=== PATIENT | male | born 1980 | race Caucasian/White ===

== ENCOUNTER 2017-02-25 11:12 | Emergency (ER) | payer SELFPAY ==
[2017-02-25 11:20] VITALS: BMI 28.8
[2017-02-25 11:48] VITALS: BP 184/107
--- NOTE | 2017-02-25 12:04 | DR.GENAD ---
HPI - PCP Primary Care Physician: NFD - Complaint/Symptoms Chief Complaint Doctors Comments: Patient presents with complaint of right inguinal pain. He reports that the pain is s/p surgery of inguinal hernia. He reports that he has been treated for epididymitis. Chief Complaint:: SHARP PAINS IN LOWER STOMACH. HERNIA SURGERY IN 05/2016 AT [facility]. BEEN THERE MULTIPLE TIMES KEEP TELLING ME THAT IT IS INFECTION. Self Treatment fo Chief Complaint: GAS PILLS - Source History Provided: Patient - Mode of Arrival Mode of Arrival: Ambulatory - Timing Onset of Chief Complaint: 02/20/17 PMH - PMH Past Medical History: No Past Surgical History: Yes Past Surgical History Comment: HERNIA AND TUBES IN EARS - Family History History of Family Medical Conditions: No Family Medical History Comment: DON'T KNOW BECAUSE THEY WHEN I WAS YOUNG - Social History Does patient currently use any type of tobacco product: Yes Have you used tobacco products in the last 12 months: Yes Type of Tobacco Use: Cigarettes Does any household member use tobacco: Yes Alcohol Use: Rarely Do you use any recreational Drugs:: No Lives With: Family Lives Where: Home - infectious screening In the last 2 months have you had wt loss of >10#?: NO Have you had fever, night sweats or hemotysis?: No Have you traveled outside the country in the last 6 months?: No Isolation: Standard ROS - Review of Systems Constitutional: negative: Diaphoresis Eyes: No Symptoms Reported ENTM: No Symptoms Reported Respiratoy: No Symptoms Reported Cardiovascular: No Symptoms Reported Gastrointestinal/Abdominal: No Symptoms Reported Genitourinary: No Symptoms Reported. negative: Discharge, Pain Neurological: No Symptoms Reported Musculoskeletal: No Symptoms Reported Integumentary: No Symptoms Reported Hematologic/Lymphatic: No Symptoms Reported Endocrine: No Symptoms Reported Psychiatric: No Symptoms Reported All Other Systems: Reviewed and Negative PE - Vital Signs Vitals: Temperature 97.7 F Pulse Rate [Right Brachial] 95 Pulse Rate 102 Respiratory Rate 20 Blood Pressure [Right Arm] 184/107 Blood Pressure 171/100 O2 Sat by Pulse Oximetry 100 - General Limitations: No Limitations General Appearance: Alert, In No Apparent Distress - Head Head Exam: Normal Inspection, Atraumatic - Eyes Eye exam: Normal Appearance, PERRL, EOMI - ENT ENT Exam: Normal Exam External Ear Exam: Normal External Inspection TM/Canal Exam: Bilateral Normal Nose Exam: Normal Nose Exam Mouth Exam: Normal Inspection Throat Exam: Normal Inspection - Neck Neck Exam: Normal Inspection - Chest Chest Inspection: Normal Inspection - Respiratory Respiratory Exam: Normal Lung Sounds Bilat Respiratory Exam: Bilateral Clear to Auscultation - Cardiovascular Cardiovascular Exam: Regular Rate - Abdominal Exam Abdominal Exam: Normal Inspection Abdominal Tenderness: negative: RUQ, RLQ, LUQ, LLQ, Epigastrium, Suprapubic, Diffuse, Mild, Moderate, Severe, Other - Extremities Extremities Exam: Normal Inspection, Full ROM - Back Back Exam: Normal Inspection - Neurologic Neurological Exam: Alert, Oriented X3, CN II-XII Intact - Psychiatric Psychiatric Exam: Normal Affect, Normal Mood - Skin Skin Exam: Warm, Dry, Intact - Other Exam Other Exam: Inguinal area (left) non erythemartous, testes wnl Course - Reevaluation 1st: Unchanged ROR - Labs Reviewed Laboratory Results Reviewed?: Yes (Crp 1.00) Result Diagrams: 02/25/17 12:10 02/25/17 12:10 Laboratory: WBC 8.7 X10^3/uL (3.6-10.0) 02/25/17 12:10 RBC 4.99 X10^6/uL (4.7-6.0) 02/25/17 12:10 Hgb 15.4 g/dL (13.5-18.0) 02/25/17 12:10 Hct 44.8 % (42.0-54.0) 02/25/17 12:10 MCV 89.8 fL (80.0-100.0) 02/25/17 12:10 MCH 30.9 pg (27.0-34.0) 02/25/17 12:10 MCHC 34.4 g/dL (33.0-35.0) 02/25/17 12:10 RDW 13.8 % (11.6-16.5) 02/25/17 12:10 Plt Count 294 X10^3/uL (150.0-450.0) 02/25/17 12:10 MPV 8.0 fL (7.4-11.0) 02/25/17 12:10 Neut % 60.7 % (42.0-75.0) 02/25/17 12:10 Lymph % 25.6 % (21.0-51.0) 02/25/17 12:10 [place] % 11.5 % (0.0-13.0) 02/25/17 12:10 Eos % 1.4 % (0.9-2.9) 02/25/17 12:10 Baso % 0.8 % (0.2-1.0) 02/25/17 12:10 Neut # 5.3 x10^3/uL (2.2-4.8) H 02/25/17 12:10 Lymph # 2.2 X10^3/uL (1.3-2.9) 02/25/17 12:10 [place] # 1.0 x10^3/uL (0.3-0.8) H 02/25/17 12:10 Eos # 0.1 x10^3/uL (0.0-0.2) 02/25/17 12:10 Baso # 0.1 X10^3/uL (0.0-0.1) 02/25/17 12:10 Absolute Nucleated RBC 0.0 /100WBC 02/25/17 12:10 Sodium 138 mmol/L (136-145) 02/25/17 12:10 Corrected Sodium TNP 02/25/17 12:10 Potassium 4.1 mmol/L (3.5-5.1) 02/25/17 12:10 Chloride 104 mmol/L (98-107) 02/25/17 12:10 Carbon Dioxide 29.6 mmol/L (21-32) 02/25/17 12:10 BUN 7 mg/dL (7-18) 02/25/17 12:10 Creatinine 1.04 mg/dL (0.70-1.30) 02/25/17 12:10 Est GFR (MDRD) Af Amer > 60 (>60) 02/25/17 12:10 Est GFR (MDRD) Non-Af > 60 (>60) 02/25/17 12:10 Glucose 79 mg/dL (65-99) 02/25/17 12:10 Calcium 9.0 mg/dL (8.5-10.1) 02/25/17 12:10 Corrected Calcium TNP 02/25/17 12:10 Total Bilirubin 0.50 mg/dL (0.2-1.0) 02/25/17 12:10 AST 14 Units/L (15-37) L 02/25/17 12:10 ALT 26 Units/L (12-78) 02/25/17 12:10 Alkaline Phosphatase 62 Units/L (46-116) 02/25/17 12:10 C-Reactive Protein 1.00 mg/L (0-3.0) 02/25/17 12:10 Total Protein 7.0 g/dL (6.4-8.2) 02/25/17 12:10 Albumin 3.8 g/dL (3.4-5.0) 02/25/17 12:10 Globulin 3.2 g/dL (2.5-4.5) 02/25/17 12:10 Albumin/Globulin Ratio 1.2 Ratio (1.1-2.1) 02/25/17 12:10 Specimen Type Clean catch urine 02/25/17 13:15 Urine Color Yellow (YELLOW) 02/25/17 13:15 Urine Appearance Hazy (CLEAR) 02/25/17 13:15 Urine pH 6.0 (5.0 - 8.0) 02/25/17 13:15 Ur Specific [place] 1.025 (1.000-1.030) 02/25/17 13:15 Urine Protein 1+ (NEGATIVE) 02/25/17 13:15 Urine Glucose (UA) Negative (NEGATIVE) 02/25/17 13:15 Urine Ketones Negative (NEGATIVE) 02/25/17 13:15 Urine Occult Blood Negative (NEGATIVE) 02/25/17 13:15 Urine Nitrite Positive (NEGATIVE) 02/25/17 13:15 Urine Bilirubin Negative (NEGATIVE) 02/25/17 13:15 Urine Urobilinogen 1+ (NORMAL) 02/25/17 13:15 Ur Leukocyte Esterase Negative (NEGATIVE) 02/25/17 13:15 Urine RBC 0-3 /HPF (NEGATIVE) 02/25/17 13:15 Urine WBC 5-10 /HPF (NEGATIVE) 02/25/17 13:15 Ur Squamous Epith Cells Rare /HPF (NEGATIVE) 02/25/17 13:15 Amorphous Sediment 2+ /HPF (NEGATIVE) 02/25/17 13:15 Urine Bacteria Trace /HPF (NEGATIVE) 02/25/17 13:15 Ur Culture Indicated? Yes/culture set up 02/25/17 13:15 - Diagnosis Discharge Problem: Lt inguinal pain - Discharge Plan Condition: Stable - Follow ups/Referrals Follow ups/Referrals: NFD,None [Primary Care Provider] - 3 days - Instructions
[2017-02-25 12:33] LABS: BASOPHILS # (AUTO) 0.1 X10^3/uL (0.0-0.1); BASOPHILS % (AUTO) 0.8 % (0.2-1.0); EOSINOPHILS # (AUTO) 0.1 x10^3/uL (0.0-0.2); EOSINOPHILS % (AUTO) 1.4 % (0.9-2.9); HEMATOCRIT 44.8 % (42.0-54.0); HEMOGLOBIN 15.4 g/dL (13.5-18.0); LYMPHOCYTES # (AUTO) 2.2 X10^3/uL (1.3-2.9); LYMPHOCYTES % (AUTO) 25.6 % (21.0-51.0); MEAN CORPUSCULAR HEMOGLOBIN 30.9 pg (27.0-34.0); MEAN CORPUSCULAR HGB CONC 34.4 g/dL (33.0-35.0); MEAN CORPUSCULAR VOLUME 89.8 fL (80.0-100.0); MONOCYTES % (AUTO) 11.5 % (0.0-13.0); NEUTROPHILS # (AUTO) 5.3 x10^3/uL (2.2-4.8); NEUTROPHILS % (AUTO) 60.7 % (42.0-75.0); PLATELET COUNT 294 X10^3/uL (150.0-450.0); RED BLOOD COUNT 4.99 X10^6/uL (4.7-6.0); RED CELL DISTRIBUTION WIDTH 13.8 % (11.6-16.5); WHITE BLOOD COUNT 8.7 X10^3/uL (3.6-10.0)
[2017-02-25 12:42] LABS: ALANINE AMINOTRANSFERASE 26 Units/L (12-78); ALBUMIN 3.8 g/dL (3.4-5.0); ALKALINE PHOSPHATASE 62 Units/L (46-116); ASPARTATE AMINO TRANSFERASE 14 Units/L (15-37); BLOOD UREA NITROGEN 7 mg/dL (7-18); CARBON DIOXIDE 29.6 mmol/L (21-32); CHLORIDE 104 mmol/L (98-107); CREATININE 1.04 mg/dL (0.70-1.30); GLUCOSE 79 mg/dL (65-99); SODIUM 138 mmol/L (136-145); eGFR BLACK RACES > 60 (>60); eGFR NON BLACK RACES > 60 (>60)
[2017-02-25 13:23] LABS: BILIRUBIN,URINE NEGATIVE (NEGATIVE); BLOOD/HEMOGLOBIN,URINE NEGATIVE (NEGATIVE); GLUCOSE, URINE NEGATIVE (NEGATIVE); KETONES,URINE NEGATIVE (NEGATIVE); LEUKOCYTE ESTERASE ,URINE NEGATIVE (NEGATIVE); NITRITES,URINE POSITIVE (NEGATIVE); PROTEIN,URINE 1+ (NEGATIVE); UROBILINOGEN,URINE 1+ (NORMAL)
[2017-02-25 13:32] LABS: APPEARANCE,URINE HAZY (CLEAR); COLOR,URINE YELLOW (YELLOW)
[2017-02-25 13:33] LABS: AMORPHOUS SEDIMENT,UR 2+ /HPF (NEGATIVE); BACTERIA,URINE TRACE /HPF (NEGATIVE); RBC,URINE 0-3 /HPF (NEGATIVE); SQUAMOUS EPITHELIAL CELL,UR RARE /HPF (NEGATIVE)
[2017-02-25] MEDS ORDERED: TORADOL 60 MG VIAL IM ONE (13:38)
[2017-02-25] MEDS ORDERED: TORADOL 60 MG VIAL ONE (14:15)
== END 2017-02-25 14:37 | disposition home or self-care (01) ==
LOC: ER 11:28
DX: R10.84 Generalized abdominal pain (principal)
CPT/HCPCS: 36415; 80053; 81001; 85025; 86140; 87086; 96372; 99282; J1885